=== PATIENT | male | born 1950 | race Caucasian/White ===

== ENCOUNTER 2022-09-03 06:28 | Outpatient (CLI) | payer OTHER | END 2022-09-03 06:29 | disposition critical access hospital (66) | LOC: EMS 06:28 | DX: R10.9 Unspecified abdominal pain (principal); R11.2 Nausea with vomiting, unspecified; R39.89 Other symptoms and signs involving the genitourinary system | CPT/HCPCS: A0425; A0429 ==

== ENCOUNTER 2022-09-03 06:45 | Emergency (ER) | payer OTHER ==
--- NOTE | 2022-09-03 07:32 | ED Physician Documentation ---
PD HPI ABD PAIN - Stated complaint Stated Complaint: R FLANK PX - Chief complaint Chief Complaint: Abd Pain - History obtained from History obtained from: Patient - History of Present Illness Timing - onset: How many hours ago (few) Timing - duration: Hours (few) Timing - details: Abrupt onset, Still present Quality: Aching, Sharp, Pain Location: RUQ, RLQ Radiation: Right flank Improved by: No: Laying still Worsened by: No: Moving, Breathing, Palpation Associated symptoms: Nausea, Vomiting, Loss of appetite. No: Fever, Diarrhea Similar symptoms before: Diagnosis (similar to kidney stone years ago) Recently seen: Not recently seen (checked [facility] link and no recent data, no blood tests. Last office visit 2019 for HTN/paronychia.) Review of Systems Constitutional: denies: Fever, Chills Nose: denies: Rhinorrhea / runny nose, Congestion Throat: denies: Sore throat Respiratory: denies: Cough GI: reports: Abdominal Pain, Nausea. denies: Vomiting, Diarrhea : denies: Dysuria, Frequency Skin: denies: Rash, Lesions Musculoskeletal: reports: Back pain (right flank) Neurologic: denies: Focal weakness, Numbness, Near syncope PD PAST MEDICAL HISTORY - Past Medical History Cardiovascular: Hypertension Respiratory: None Endocrine/Autoimmune: None : Renal insuffiency (he does not know his baseline creatinine but says prior PMD had told him his kidneys did not work as well and was not to take NSAIDs. ), Kidney stones (many years ago. ) - Present Medications Home Medications: Ambulatory Orders Medication Instructions Recorded Confirmed Ondansetron Odt [Zofran] 4 mg TL Q6H PRN #10 tablet 09/03/22 Oxycodone HCl/Acetaminophen 1 each PO Q6H PRN #20 tablet 09/03/22 [Percocet 5-325 mg Tablet] Tamsulosin [Flomax] 0.4 mg PO DAILY #5 cap 09/03/22 - Allergies Allergies/Adverse Reactions: Allergies Allergy/AdvReac Type Severity Reaction Status Date / Time zolpidem [From Ambien] AdvReac Hallucinati Verified 09/03/22 07:21 ons PD ED PE NORMAL - Vitals Vital signs reviewed: Yes - General General: Alert and oriented X 3, Well developed/nourished, Other (appears in pain right flank and abdomen. ) - Neck Neck: Supple, no meningeal sign, No adenopathy - Cardiac Cardiac: RRR, No murmur - Respiratory Respiratory: Clear bilaterally - Abdomen Abdomen: Normal bowel sounds, Soft, Non distended, No organomegaly, Other (some tenderness right mid abd without guarding. ) Results - Vitals Vitals: Vital Signs - 24 hr 09/03/22 09/03/22 09/03/22 06:56 09:23 10:22 Temperature 36.6 C Heart Rate 61 62 75 Respiratory 19 24 16 Rate Blood Pressure 169/85 H 145/78 H 156/82 H O2 Saturation 100 94 99 Oxygen O2 Source Room air - Labs Labs: Laboratory Tests 09/03/22 09/03/22 09/03/22 07:15 07:15 07:24 WBC 5.8 RBC 4.90 Hgb 15.5 Hct 44.7 MCV 91.2 MCH 31.6 H MCHC 34.7 RDW 12.8 Plt Count 175 MPV 10.3 Neut # (Auto) 4.5 Lymph # (Auto) 0.6 L [place] # (Auto) 0.6 Eos # (Auto) 0.0 Baso # (Auto) 0.0 Absolute Nucleated RBC 0.00 Nucleated RBC % 0.0 Sodium 138 Potassium 3.9 Chloride 105 Carbon Dioxide 22 Anion Gap 11.0 BUN 34 H Creatinine 2.4 H Estimated GFR (MDRD) 27 L Glucose 115 H Calcium 9.2 Total Bilirubin 1.0 AST 23 ALT 13 Alkaline Phosphatase 106 Total Protein 7.0 Albumin 4.9 Globulin 2.1 Albumin/Globulin Ratio 2.3 H Lipase 39 Urine Color YELLOW Urine Clarity CLEAR Urine pH 6.0 Ur Specific [place] 1.025 Urine Protein 30 H Urine Glucose (UA) NEGATIVE Urine Ketones TRACE Urine Occult Blood SMALL H Urine Nitrite NEGATIVE Urine Bilirubin NEGATIVE Urine Urobilinogen 0.2 (NORMAL) Ur Leukocyte Esterase NEGATIVE Urine RBC None Seen Urine WBC 0-3 Ur Squamous Epith Cells RARE Squamous Urine Bacteria None Seen Urine Casts 0-2 Hyaline Casts Ur Microscopic Review INDICATED Urine Culture Comments NOT INDICATED - Rads (name of study) KUB CT Radiology: Prelim report reviewed (3 mm distal ureteral stone with mild hydronelphrosis. incidental cholelithiasis without signs of cholecystitis. ), See rad report PD MEDICAL DECISION MAKING - ED course Complexity details: reviewed results (mild hydro with 3 mm distal ureteral stone and no infection. Sounds like his renal insuff is chronic but I don't have comparisons. He says PMD with the [place] system. I am unable to access their records at this time. ), re-evaluated patient (greatly improved with meds iV and declines repeated doses at this point. ), considered differential, d/w patient Departure - Departure Disposition: Home, Self Care Clinical Impression: Acute right flank pain, Ureterolithiasis, Elevated serum creatinine Condition: Stable Record reviewed to determine appropriate education?: Yes Instructions: ED Stone Renal W Colic Follow-Up: [facility] [Provider Group] Prescriptions: Tamsulosin [Flomax] 0.4 mg PO DAILY #5 cap Oxycodone HCl/Acetaminophen [Percocet 5-325 mg Tablet] 1 each PO Q6H PRN #20 tablet PRN Reason: pain Ondansetron Odt [Zofran] 4 mg TL Q6H PRN #10 tablet PRN Reason: Nausea / Vomiting Comments: You do have a small 3 mm stone at the lower ureter almost to the bladder. This appears to be the cause of your pain. There is a mild back pressure of the kidney (hydronephrosis). We would treat this with good hydration and use Tylenol every 4-6 hours if needed for pain or oxycodone/acetaminophen if needed for worse pain every 4 hours. Ondansetron if needed for nausea. Tamsulosin prostate medicine is used in this setting because it does reduce ureter spasms and tries to promote more readily passage of the stone. Do not take any anti-inflammatory such as ibuprofen or naproxen due to your renal function. Your creatinine which is a measure of kidney filtering is 2.4 which is elevated above normal. Contact your [place] provider office on Sunday to see if this is the normal range or current range for your creatinine or if its higher than normal. If its higher than normal, they may want to adjust some of your medicines. Return if your pain is uncontrolled with the above medications. I would expect a stone of this size to pass over the next several days. Follow- up if it does not seem to have. I transmitted prescriptions to [facility] in [place]. I am prescribing a short course of narcotic pain medication for you. These are potentially dangerous and addictive medications that should be used carefully. These medications may constipate you. Take an [id number] stool softener such as docusate twice daily with plenty of water while taking these medications. If you go 24 hours without a bowel movement, take [id number] MiraLAX, per package instructions. Do not drink or drive while taking these medications. If you received narcotic or sedating medications while in the emergency department do not drive for 24 hours. Store this medication in a safe, secure place and out of reach of children. It is a violation of federal law to give or sell this medication to another person or to use in a manner other than prescribed. The ED will not refill narcotic prescriptions, including prescriptions lost or stolen. You can dispose of unwanted medications at the [facility]'s office or at several pharmacies such as [facility]. Discharge Date/Time: 09/03/22 10:22
[2022-09-03 07:37] LABS: HGB - HEMOGLOBIN 15.5 g/dL (14.0-18.0); MEAN PLATELET VOLUME 10.3 fL (7.4-11.4); MONOCYTES # (AUTO) 0.6 10^3/uL (0.0-1.0)
[2022-09-03 07:37] LABS: BILIRUBIN,URINE NEGATIVE (NEGATIVE); GLUCOSE, URINE (UA) NEGATIVE (NEGATIVE); KETONES,URINE (UA) TRACE mg/dL (NEGATIVE); LEUKOCYTE ESTERASE, URINE NEGATIVE (NEGATIVE); NITRITE,URINE NEGATIVE (NEGATIVE); OCCULT BLOOD,URINE SMALL (NEGATIVE); PROTEIN,URINE 30 mg/dL (NEGATIVE); UROBILINOGEN,URINE 0.2 (NORMAL) E.U./dL (NORMAL)
[2022-09-03] MEDS ORDERED: HYDROmorphone 1 MG/ML CARPUJECT IVP STA (07:40)
[2022-09-03] MEDS ORDERED: SODIUM CHLORIDE 0.9% 1,000 ML IV STA (07:40)
[2022-09-03] MEDS ORDERED: ONDANSETRON 4 MG/2 ML VIAL IVP STA (07:40)
[2022-09-03] MEDS ORDERED: KETOROLAC 15 MG/ML VIAL IVP STA (07:40)
[2022-09-03] MEDS ORDERED: iohexoL-300 100 ML VIAL ONE (07:45)
[2022-09-03 07:46] LABS: ALBUMIN 4.9 g/dL (3.2-5.5); ALBUMIN/GLOBULIN RATIO 2.3 (1.0-2.2); CALCIUM 9.2 mg/dL (8.5-10.3); CREATININE 2.4 mg/dL (0.6-1.2); POTASSIUM 3.9 mmol/L (3.5-5.0)
[2022-09-03 07:50] LABS: BASOPHILS % (AUTO) 0.2 %; EOSINOPHILS % (AUTO) 0.5 %; HCT - HEMATOCRIT 44.7 % (42.0-52.0); LYMPHOCYTES # (AUTO) 0.6 10^3/uL (1.5-3.5); LYMPHOCYTES % (AUTO) 11.1 %; MEAN CORPUSCULAR HEMOGLOBIN 31.6 pg (27.0-31.0); MEAN CORPUSCULAR HGB CONC 34.7 g/dL (32.0-36.0); MEAN CORPUSCULAR VOLUME 91.2 fL (80.0-94.0); MONOCYTES % (AUTO) 10.2 %; NEUTROPHILS # (AUTO) 4.5 10^3/uL (1.5-6.6); NEUTROPHILS % (AUTO) 77.7 %; PLT - PLATELET COUNT 175 10^3/uL (130-450); RED CELL DISTRIBUTION WIDTH 12.8 % (12.0-15.0); WHITE BLOOD COUNT 5.8 x10^3/uL (4.8-10.8)
[2022-09-03 07:54] LABS: CLARITY,URINE CLEAR (CLEAR); WBC,URINE 0-3 /HPF (0-3)
[2022-09-03 07:55] LABS: BACTERIA,URINE None Seen /HPF (None Seen); CASTS, URINE 0-2 Hyaline Casts /LPF; RBC,URINE None Seen /HPF (0-5); SQUAMOUS EPITHELIAL CELL,UR RARE Squamous (<= Few)
--- NOTE | 2022-09-03 08:42 | CT Report ---
PROCEDURE: ABDOMEN/PELVIS WO INDICATIONS: flank pain since last evening TECHNIQUE: Noncontrast 5 mm thick sections acquired from the diaphragms to the symphysis. 5 mm coronal and sagi ttal reformats were then performed. For radiation dose reduction, the following was used: automated exposure control, adjustment of mA and/or kV according to patient size. COMPARISON: None. FINDINGS: Image quality: Excellent. ABDOMEN: Lung bases: Lung bases are clear. Heart size is normal. Solid organs: Liver is normal in size. Small calcific granuloma in the left lobe of the liver. Gall bladder is not distended. There is near circumferential calcification of the gallbladder wall. Likely gallstones present including one calcification near the cystic duct. Pancreas is normal in contours . Spleen is at the upper limits of normal measuring 13 cm. No definite adrenal nodules. Kidneys are normal in size. Mild right hydroureteronephrosis. Obstructing calculus at the right UVJ m easuring is 0.3 cm, (3/138). There is right perinephric stranding. No additional right kidney stones. No left hydronephrosis. Nonobstructing calculus at the superior pole the left kidney measuring 0.3 c m. Peritoneum and bowel: Unenhanced bowel loops demonstrate normal wall thickness and caliber. A few co lonic diverticuli. The appendix is not identified. No free fluid or air. Nodes and vessels: No retroperitoneal or mesenteric adenopathy by size criteria. Aorta and inferior vena cava are normal in caliber. Minimal calcified plaque. Miscellaneous: No ventral hernias. PELVIS: Genitourinary: Bladder is within normal limits. Prostatomegaly. Miscellaneous: No inguinal hernias or adenopathy. Bones: No suspicious bony lesions. No vertebral body compression fractures. IMPRESSION: 1. Obstructing calculus at the right UVJ measuring 0.3 cm. Mild right hydroureteronephrosis. 2. Small nonobstructing left kidney stone. 3. Porcelain gallbladder. Probable cholelithiasis. Reviewed by: Jose Jj MD on 09/03/2022 7:41 AM [facility] Approved by: Jose Jj MD on 09/03/2022 7:41 AM [facility] Station ID: [id number]
[2022-09-03] MEDS ORDERED: SODIUM CHLORIDE 0.9% 500 ML IV STA (08:55)
[2022-09-03] MEDS ORDERED: TAMSULOSIN 0.4 MG CAPSULE PO STA (09:23)
[2022-09-03 10:23] VITALS: BP 156/82
== END 2022-09-03 10:22 | disposition home or self-care (01) ==
LOC: EDUNIT# → ED 06:45
DX: R11.2 Nausea with vomiting, unspecified (principal); N13.2 Hydronephrosis with renal and ureteral calculous obstruction; N18.9 Chronic kidney disease, unspecified
CPT/HCPCS: 36415; 74176; 80053; 81001; 83690; 85025; 96374; 96375; 99284; A9270; J1170; 81003; 87086

== ENCOUNTER 2022-11-20 14:25 | Outpatient (CLI) | payer OTHER ==
[2022-11-20 20:51] VITALS: BP 152/90
--- NOTE | 2022-11-20 20:51 | SLEEP CARE CONSULTATION ---
Information from patient questionnaire entered by Jesse Carl. I have reviewed and concur with the information entered by Jesse Carl. This document represents the service I personally performed and the decisions made by me, Burton Moore MD, [facility]. History of Present Illness Service Date and Time: 11/20/2022 1425 Reason for Visit: New patient Chief Complaint: reports: Unrefreshed sleep, Snoring, Frequent awakenings at night Usual bedtime: 10PM Time it takes to fall asleep: AVG 1 HR Snores at night: Yes Observed to quit breathing while asleep: No Sleeps alone due to snoring: Yes Number of times waking at night: 2-3 Reasons for waking at night: reports: Bathroom, Other (UNKNOWN REASONS ) Toss, Turn, or Twitch while sleeping: Yes Recalls having dreams: Yes Usually gets out of bed at: 5-6AM Feels refreshed in the morning: No Morning headache: No Sleepy or fatigued during the day: Yes Ever fallen asleep while driving: No Takes day naps: No Dreams during day naps: Yes Prior sleep studies: Yes Additional HPI information: I had the pleasure of seeing Mr. Uribe today regarding obstructive sleep apnea-hypopnea. As you know, he is a 72 year old gentleman who was diagnosed with the sleep-related breathing disorder about 20 years ago at [facility] and [place]. He was seen here in 2008 but did not have a sleep study as ordered. He said his last sleep study was several years ago at [facility]. He used a CPAP until about 4 years ago. He stopped because he lacked supplies. He did not recall improvement on CPAP. He is now interested in the Inspire therapy (hypoglossal nerve stimulation). - Parasomnia Symptoms Ever been unable to move upon waking from sleep: No Walks in sleep: No Talks in sleep: No Ever acted out dreams in sleep: No Ever felt weak in the knees when startled or emotional: No Bothered by creepy, crawly, restless sensations in legs: No Problems with memory or concentration: No Subjective Initial [place] Sleepiness Scale score: 4 (11/20/22) Past Medical History Past Medical History: reports: Hypertension, Arthritis, Depression, Other (EPILEPSY ) Social History The patient's occupation is a RE. Patient is and lives in [place]. Have you smoked in the past 12 months: No Years of smokin Quit date: 1980 Alcohol use: No Caffeine use: Yes Caffeine amount and frequency: 1-2 DAILY Family History Family history of sleep disordered breathing: No Allergies and Home Medications Known drug allergies: Yes (AMBIAN ) Drug allergies reviewed: Yes Home medication list reviewed: Yes Allergy and home medication list: Allergies zolpidem [From Ambien] Adverse Reaction (Verified 09/03/22 07:21) Hallucinations Review of Systems Cardiovascular: reports: high blood pressure Respiratory: denies: shortness of breath, wheeze, sputum production, chronic cough, other Gastrointestinal: denies: heartburn, difficulty swallowing, nausea, vomitting, diarrhea, abdominal pain, other Urinary: denies: incontinence, frequency, urgency, impotence, other Neurological: reports: headaches, seizure, head trauma Psychiatric: reports: depression Ear/Nose/Throat: reports: injury to nose, tonsillectomy, wisdom teeth removed Endocrine: denies: thyroid disease, history of goiter, sluggishness, too hot or cold, excessive thirst, increased appetite, increased urination, unexplained weakness, other Musculoskeletal: reports: neck pain Physical Exam Vital signs obtained and entered by: JESSE Florian MA Blood Pressure: 152/90 (LEFT ARM) Cuff size: regular Heart Rate: 61 O2 Saturation: 98 Height: 6 ft 2 in Weight: 234 lb 12.8 oz Body Mass Index: 30.1 BMI Classification: Obese Neck circumference: 16.75 Mood/affect: normal HEENT: No craniofacial malformation Nostrils: patent to airflow Turbinates: normal Septum: midline Mouth and throat: normal Soft palate: normal Hard palate: normal Tongue: normal in size Tonsils: absent bilaterally Chin and jaw: normal size and position Neck: normal w/o lymphadenopathy or thyromegaly Heart: regular rate and rhythm Lungs: clear bilaterally Extremities: no edema or clubbing Neurologic: intact Impression and Plan IMPRESSION: 1. Obstructive Sleep Apnea-Hypopnea Syndrome, as previously diagnosed but presently untreated. Some of his sleep studies did not show significant sleep-disordered breathing. Therefore, before referring him to the Inspire Therapy, a new in-laboratory polysomnography will be required to establish the diagnosis and its severity (the procedure is not indicated for mild obstructive sleep apnea-hypopnea). Plan: 1. Schedule an in-laboratory polysomnography. 2. Return for follow up after the sleep study. Follow up with Sleep Care in: 1-2 months Visit Type: In Office Time Spent with Patient (minutes): 15 Provider Statement: I spent 100% of the Face to Face Visit with the patient with greater than 50% spent counseling the patient and coordination of care.
== END 2022-11-20 14:26 | disposition home or self-care (01) ==
LOC: SC 14:25
PROVIDERS: ATTEND Internal Medicine Pulmonary Disease
DX: G47.33 Obstructive sleep apnea (adult) (pediatric) (principal); E66.9 Obesity, unspecified; Z68.30 Body mass index [BMI] 30.0-30.9, adult
CPT/HCPCS: 99202; 99212

== ENCOUNTER 2022-12-11 20:22 | Outpatient (CLI) | payer OTHER | END 2022-12-11 20:23 | disposition home or self-care (01) | LOC: SC 20:22 | PROVIDERS: ATTEND Internal Medicine Pulmonary Disease | DX: G47.33 Obstructive sleep apnea (adult) (pediatric) (principal); G47.61 Periodic limb movement disorder | CPT/HCPCS: 95810 ==

== ENCOUNTER 2023-01-15 15:23 | Outpatient (CLI) | payer OTHER ==
[2023-01-15 16:05] VITALS: BP 142/80
--- NOTE | 2023-01-15 16:05 | SLEEP CARE CONSULTATION ---
Information from patient questionnaire entered by Jesse Carl. I have reviewed and concur with the information entered by Jesse Carl. This document represents the service I personally performed and the decisions made by me, Burton Moore MD, [facility]. History of Present Illness Service Date and Time: 01/15/2023 1523 Initial [place] Sleepiness Scale score: 4 Current [place] Sleepiness Scale score: 1 (01/15/23) Additional HPI information: Mr. Uribe returned for follow up of the sleep study he had on 12/11/2022. The polysomnography showed that the patient had reduced sleep efficiency due to two prolonged awakenings during the night. The sleep architecture was abnormal for sleep fragmentation and reduced amount of time spent in REM and slow wave sleep (N3). Respiratory monitoring showed moderate obstructive sleep apnea-hypopnea (AHI = 18.1) associated with frequent arousals, oxyhemoglobin desaturation and mild hypoxia (maia oxygen saturation of 87%). The patient slept almost exclusively in non-supine positions (supine AHI = 120.0; non-supine = 16.37). Snore was moderate to loud in intensity. There was mild periodic leg movement of sleep not contributing to the sleep fragmentation. Cardiac rhythm was normal sinus rhythm without significant arrhythmia. No abnormal behavior (parasomnia) observed during the night. The patient was informed of these findings. I explained to him the pathophysiology behind obstructive sleep apnea. We then spent quite a bit of time discussing different treatment options. For mild obstructive sleep apnea, surgery and oral appliance are alternatives to nasal CPAP therapy but in moderate or severe cases, nasal CPAP is the most effective and reliable treatment. Weight loss in an obese individual is strongly recommended. After s ome discussion, he opted to go with the Inspire therapy (hypoglossal nerve stimulation). He tried CPAP many years ago and failed. Sleep Study - Results Type of Sleep Study: Polysomnography (COMPLETED 12/11/22) Prior sleep studies: Yes Allergies and Home Medications Drug allergies reviewed: Yes Home medication list reviewed: Yes Allergy and home medication list: Allergies zolpidem [From Ambien] Adverse Reaction (Verified 09/03/22 07:21) Hallucinations Review of Systems Review of systems same as previous: Yes Physical Exam Vital signs obtained and entered by: JESSE Florian MA Blood Pressure: 142/80 (LEFT ARM) Cuff size: regular Heart Rate: 64 O2 Saturation: 98 Height: 6 ft 2 in Weight: 241 lb 9.6 oz Body Mass Index: 31.0 BMI Classification: Obese Impression and Plan IMPRESSION: 1. Obstructive Sleep Apnea-Hypopnea Syndrome, moderate, associated with mild hypoxemia and sleep fragmentation. Most likely, this is the cause of the patients symptoms of unrefreshed sleep, and excessive daytime sleepiness. The patient is interested in the Inspire therapy (hypoglossal nerve stimulation). He will [facility] to see which surgeon he can go see. PLAN: 1. Inspire therapy (hypoglossal nerve stimulation) 2. Return for a follow up after the device is activated. Follow up with [facility] Care in: 1 year Follow up with: Other (ENT) Visit Type: In Office Time Spent with Patient (minutes): 15 Provider Statement: I spent 100% of the Face to Face Visit with the patient with greater than 50% spent counseling the patient and coordination of care.
== END 2023-01-15 15:24 | disposition home or self-care (01) ==
LOC: SC 15:23
PROVIDERS: ATTEND Internal Medicine Pulmonary Disease
DX: G47.33 Obstructive sleep apnea (adult) (pediatric) (principal); E66.9 Obesity, unspecified; Z68.31 Body mass index [BMI] 31.0-31.9, adult
CPT/HCPCS: 99212

== ENCOUNTER 2023-09-17 08:28 | Outpatient (CLI) | payer OTHER | END 2023-09-17 08:29 | disposition critical access hospital (66) | LOC: EMS 08:28 | DX: M25.512 Pain in left shoulder (principal) | CPT/HCPCS: A0425; A0429 ==

== ENCOUNTER 2023-09-17 08:47 | Emergency (ER) | payer OTHER ==
[2023-09-17] MEDS ORDERED: oxyCODONE 5 MG TABLET PO STA (09:04)
--- NOTE | 2023-09-17 09:05 | ED Physician Documentation ---
PD HPI UPPER EXT INJURY - Stated complaint Stated Complaint: GLF/SHOULDER PX - Chief complaint Chief Complaint: Trauma Ext - History obtained from History obtained from: Patient, EMS - Additonal information Additional information: 73-year-old male presents by EMS from his place of work for left shoulder pain. 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 He landed on his left shoulder. Denies hitting his head, denies loss of consciousness, denies use of blood thinners. Reports shoulder pain and stiffness. Patient states that he has had issues with falling over the last year and is currently working with his primary care physician and physical therapy on this matter. Review of Systems Constitutional: denies: Fever, Chills Cardiac: denies: Chest pain / pressure, Palpitations, Calf pain Respiratory: denies: Dyspnea, Cough, Wheezing GI: denies: Abdominal Pain, Nausea, Vomiting : denies: Dysuria, Frequency, Hesitancy Musculoskeletal: reports: Extremity pain. denies: Neck pain, Back pain, Joint pain, Extremity swelling Neurologic: denies: Generalized weakness, Focal weakness, Numbness, Headache, Head injury PD PAST MEDICAL HISTORY - Past Medical History Past Medical History: Yes Cardiovascular: Hypertension, Coronary artery disease Respiratory: None Neuro: Seizure disorder Endocrine/Autoimmune: None : Renal insuffiency, Kidney stones Psych: Depression - Past Surgical History Past Surgical History: No - Present Medications Home Medications: Ambulatory Orders Medication Instructions Recorded Confirmed Amlodipine Besylate [Norvasc] 10 mg PO DAILY 09/17/23 09/17/23 Atorvastatin [Lipitor] 20 mg PO HS 09/17/23 09/17/23 Cetirizine [ZyrTEC] 10 mg PO DAILY 09/17/23 09/17/23 Cyanocobalamin (Vitamin B-12) 10,000 mcg PO DAILY 09/17/23 09/17/23 [Vitamin B12] Escitalopram [Lexapro] 10 mg PO DAILY 09/17/23 09/17/23 Losartan [Cozaar] 50 mg PO DAILY 09/17/23 09/17/23 carBAMazepine [TEGretol] 200 mg PO BID 09/17/23 09/17/23 - Allergies Allergies/Adverse Reactions: Allergies Allergy/AdvReac Type Severity Reaction Status Date / Time zolpidem [From Ambien] AdvReac Hallucinati Verified 09/17/23 09:04 ons - Social History Does the pt smoke?: No Smoking Status: Never smoker Does the pt drink ETOH?: No Does the pt have substance abuse?: No - Immunizations Immunizations are current?: Yes PD ED PE NORMAL - Vitals Vital signs reviewed: Yes - General General: Alert and oriented X 3, No acute distress, Well developed/nourished - HEENT HEENT: Atraumatic, PERRL, EOMI - Neck Neck: Supple, no meningeal sign, No bony TTP, C-Spine cleared by NEXUS criteria - Cardiac Cardiac: RRR - Respiratory Respiratory: No respiratory distress, Clear bilaterally - Abdomen Abdomen: Soft, Non tender, Non distended - Derm Derm: Normal color, Warm and dry, No rash - Extremities Extremities: No deformity, No edema, Other (generalized tenderness over L s houlder/humeral region) - Neuro Neuro: Alert and oriented X 3, prizer hand 2-12 intact, No motor deficit, Normal speech - Psych Psych: Normal mood, Normal affect Results - Vitals Vitals: Vital Signs - 24 hr 09/17/23 09/17/23 09:00 10:03 Temperature 36.2 C L Heart Rate 80 78 Respiratory 16 15 Rate Blood Pressure 180/89 H 166/88 H O2 Saturation 99 98 Oxygen O2 Source Room air PD Medical Decision Making - ED course Complexity details: re-evaluated patient, considered differential, d/w patient ED course: Ground-level mechanical trip and fall. Left shoulder pain, no obvious deformity. Patient given pain medications, XR imaging obtained of L shoulder. No acute abnormalities identified. RICE instructions advised. Neurovascularly intact, no need for sling or immobilizer. Weight restriction for work provided along [facility] for work. Departure - Departure Disposition: 01 Home, Self Care Clinical Impression: Shoulder injury Qualifiers: Encounter type: initial encounter Laterality: left Qualified Code(s): S49.92XA - Unspecified injury of left shoulder and upper arm, initial encounter Condition: Stable Instructions: Falls Job Prevent, ED Contusion Upper Ext Comments: TAKE TYLENOL AND MOTRIN NEEDED FOR PAIN. APPLY ICE TO THE SHOULDER FOR COMFORT. FOLLOW UP WITH YOUR PCP Forms: PCP List Discharge Date/Time: 09/17/23 10:32
--- NOTE | 2023-09-17 09:28 | XRAY Report ---
PROCEDURE: Shoulder 3 View LT INDICATIONS: glf, shoulder pain TECHNIQUE: 3 views of the shoulder were acquired. COMPARISON: None. FINDINGS: Bones: No fractures or dislocations. No suspicious bony lesions. Visualized ribs appear intact. Soft tissues: No suspicious soft tissue calcifications. The visualized lungs are within normal limi ts. IMPRESSION: No visualized acute fracture or dislocation. However, occult injury cannot be excluded. Recommend jonathan rt interval imaging follow-up in 7-10 days as clinically indicated for additional evaluation. Reviewed by: Ivett Robledo MD on 09/17/2023 9:27 AM PST Approved by: Ivett Robledo MD on 09/17/2023 9:27 AM [facility] Station ID: [id number]
[2023-09-17 10:15] VITALS: BP 166/88; O2SAT 98
== END 2023-09-17 10:32 | disposition home or self-care (01) ==
LOC: EDUNIT# → ED 08:47
DX: S49.92XA Unspecified injury of left shoulder and upper arm, initial encounter (principal); W01.0XXA Fall on same level from slipping, tripping and stumbling without subsequent striking against object, initial encounter; Y93.89 Activity, other specified; Y92.512 Supermarket, store or market as the place of occurrence of the external cause; Y99.0 Civilian activity done for income or pay
CPT/HCPCS: 1040M; 73030; 99283; A9270